=== PATIENT | male | born 1975 | race African-American/Black ===

== ENCOUNTER 2020-08-06 14:34 | Emergency (ER) | payer MEDICAID, OTHER ==
[~2020-08-06] VITALS: Ht 175.3 cm; Wt 86.2 kg
[2020-08-06 15:05] LABS: Basophils # (auto) 0 10 ^3/uL (0-0.2); Basophils % (auto) 0.4 % (0.0-2.0); Eosinophils # (auto) 0.1 10 ^3/uL (0-0.8); Eosinophils % (auto) 0.9 % (0.0-7.0); Hemoglobin 14.9 g/dL (13.5-17.5); Lymphocytes # (auto) 3.4 10 ^3/uL (0.4-5.4); Lymphocytes % (auto) 41.8 % (10.0-50.0); Mean Corpuscular Hemoglobin 32.5 pg (28.0-32.0); Mean Corpuscular Hgb Conc. 33.8 g/dL (32.0-36.0); Mean Corpuscular Volume 96.1 fL (80.0-100.0); Monocytes # (auto) 0.7 10 ^3/uL (0-1.3); Monocytes % (auto) 8.5 % (0.0-12.0); Neutrophils # (auto) 3.9 10 ^3/uL (1.6-8.6); Neutrophils % (auto) 48.4 % (37.0-80.0); Nucleated Red Blood Cells % 0.2 %; Platelet Count (auto) 206 10^3/uL (140-450); Red Blood Cells 4.58 10^6/uL (4.5-5.90); Red Cell Distribution Width 14.6 % (11.8-14.3)
[2020-08-06 15:06] VITALS: BP 118/79
[2020-08-06 15:11] LABS: Urine Bacteria NONE SEEN /hpf (None Seen); Urine Blood Negative /uL (Negative); Urine Mucus FEW (None Seen); Urine Specific Gravity 1.025 (1.001-1.035); Urine WBC 3 /hpf (0 - 3)
[2020-08-06 15:23] LABS: Calcium 8.5 mg/dL (8.5-10.1); Potassium 3.7 mmol/L (3.5-5.1)
[2020-08-06 15:26] LABS: BUN/Creatinine Ratio 9.5; Bilirubin, Total 0.7 mg/dL (0.2-1.0); Total Protein 7.8 g/dL (6.4-8.2)
== END 2020-08-06 17:10 | disposition left against medical advice (07) ==
LOC: ER 14:38
DX: R10.9 Unspecified abdominal pain (principal); R31.9 Hematuria, unspecified; F17.210 Nicotine dependence, cigarettes, uncomplicated
CPT/HCPCS: 36415; 74176; 80053; 81001; 85025

== ENCOUNTER 2022-03-12 20:29 | Emergency (ER) | payer MEDICAID ==
[~2022-03-12] VITALS: Ht 175.3 cm; Wt 83.9 kg
[2022-03-12 20:30] VITALS: BP 106/63
== END 2022-03-13 02:12 | disposition left against medical advice (07) ==
LOC: ER 20:29
DX: M25.512 Pain in left shoulder (principal); Z53.21 Procedure and treatment not carried out due to patient leaving prior to being seen by health care provider

== ENCOUNTER 2023-02-11 08:12 | Emergency (ER) | payer MEDICAID ==
[~2023-02-11] VITALS: Ht 175.3 cm; Wt 85.3 kg
[2023-02-11 09:37] VITALS: BP 130/88
[2023-02-11] MEDS ORDERED: HYDROcodone-ACET 10/325MG TAB PO ONE (09:45)
[2023-02-11] MEDS ORDERED: IBUP600T28 PO (09:59)
[2023-02-11] MEDS ORDERED: HYDR-4902 PO (10:03)
== END 2023-02-11 10:17 | disposition home or self-care (01) ==
LOC: ER 08:12
DX: S90.111A Contusion of right great toe without damage to nail, initial encounter (principal); X58.XXXA Exposure to other specified factors, initial encounter; Y93.89 Activity, other specified; Y92.89 Other specified places as the place of occurrence of the external cause; Y99.8 Other external cause status
CPT/HCPCS: 73630